=== PATIENT | male | born 1980 | race African-American/Black ===

== ENCOUNTER 2023-08-24 17:26 | Emergency (ER) | payer MEDICAID, OTHER ==
[~2023-08-24] VITALS: Ht 172.7 cm; Wt 68.0 kg
[2023-08-24] MEDS ORDERED: KETOROLAC TROMETHAMINE 60 MG INJ IM ONE ×2 (21:15→22:04)
[2023-08-24] MEDS ORDERED: IBUP-1953 PO (23:20)
[2023-08-24 23:30] VITALS: BP 138/69; O2SAT 98
== END 2023-08-24 23:31 | disposition home or self-care (01) ==
LOC: ER 17:28
DX: Z04.1 Encounter for examination and observation following transport accident (principal); R51.9 Headache, unspecified; M54.2 Cervicalgia; Z88.8 Allergy status to other drugs, medicaments and biological substances; V03.19XA Pedestrian with other conveyance injured in collision with car, pick-up truck or van in traffic accident, initial encounter; Y93.89 Activity, other specified; Y92.89 Other specified places as the place of occurrence of the external cause; Y99.8 Other external cause status
CPT/HCPCS: 99285; 70450; 71250; 72125; 74176; 96372; J1885; A4606; A4663